=== PATIENT | female | born 1965 | race Caucasian/White ===

== ENCOUNTER 2016-10-25 10:09 | Emergency (ER) | payer OTHER ==
[2016-10-25 10:14] VITALS: BP 91/57; PULSE 73; TEMP 98; BMI 23.4
--- NOTE | 2016-10-25 11:03 | PDOC ---
[id number] 4d RED RT EYE, POSSIBLE INFECTION Time Seen by Provider: 10/25/16 10:39 History Source: Patient Exam Limitations: No Limitations - History of Present Illness Initial Comments: 10/25/16 11:03 Chief complaint: rightness of rt eye History of present illness: Patient is a 51-year-old female with no significant medical history who presents with redness of the sclera of right eye that patient noted had worsened today. Patient reports that she accidentally sprayed herself in the right eye with a cleaning product yesterday at [facility]. She irrigated it with warm water yesterday for about 10 minutes. She did not report this yesterday. Her rt. eye had a stinging sensation in it, unsure if she rubbed her eye. Pt. is unsure or which one out of four products she sprayed herself with. I spoke with her boss who reports that it could have been Good Sense, Alpha HP, Virex 256 or Glance all by [employer]. Poison control [facility] called he recommended testing PH now it should be 7-8 do PH , rinse with water if not between 7-8. No tearing or change in photophobia or visual changes. Pt. wears glasses for distance. SNellen OS 20/100, OD 20/50 and OU 20/50 without glasses for distance does not have them here. 10/25/16 11:31 10/25/16 13:12 10/25/16 13:14 Occurred: reports: yesterday Severity: reports: mild Pain Location: reports: none Method of Injury: Yes: other ( sprayed in rt. eye by laboratory equipment cleaner at work yesterday ) Modifying Factors: improves with: None Loss of Consciousness: no loss of consciousness Associated Symptoms (Fall): other (rt. eye subconjunctiva hemorrhage ) Past History - Past Medical History Allergies/Adverse Reactions: Allergies Allergy/AdvReac Type Severity Reaction Status Date / Time No Known Allergies Allergy Verified 10/25/16 10:10 Home Medications: Ambulatory Orders Peg 400/Hypromellose/Glycerin [Artificial Tears Drops] 2 drop OD Q8H #1 drops - Psycho/Social/Smoking Cessation Hx Suicidal Ideation: No Smoking History: Never smoked Have you smoked in the past 12 months: No Information on smoking cessation initiated: No Hx Alcohol Use: No Drug/Substance Use Hx: No Review of Systems - Review of Systems Able to Perform ROS?: Yes Constitutional: No: Symptoms Reported HEENTM: Yes: Other (subconjunctiva hemorrhage rt. eye noted today, sprayed in rt. eye yesterday at work with one of 4 operations accountant unsure of which one). No: Eye Pain, Blurred Vision, Tearing Respiratory: No: Symptoms reported Cardiac (ROS): No: Symptoms Reported ABD/GI: No: Symptoms Reported : No: Symptoms Reported Musculoskeletal: No: Symptoms Reported Integumentary: No: Symptoms Reported Neurological: No: Symptoms reported *Physical Exam - Vital Signs Last Vital Signs Temp Pulse Resp BP Pulse Ox 98.0 F 73 19 91/57 100 10/25/16 10:11 10/25/16 10:11 10/25/16 10:11 10/25/16 10:11 10/25/16 10:11 - Physical Exam General Appearance: Yes: Appropriately Dressed HEENT: positive: EOMI, SMILEY, Other (subconjunctiva hemorrhage noted rt. eye from 2o'clock to 8 o'clock, snellen OD 20/100, OS 20/50 and OU 20/50 without glasses, does not have glasses for distance with her). negative: Photophobia, Orbits Neck: negative: Lymphadenopathy (R), Lymphadenopathy (L) Respiratory/Chest: positive: Lungs Clear, Normal Breath Sounds. negative: Chest Tender, Respiratory Distress Cardiovascular: positive: Regular Rhythm, Regular Rate, S1, S2 Integumentary: positive: Normal Color Neurologic: positive: Alert, Normal Response, Responsive Medical Decision Making - Medical Decision Making 10/25/16 11:38 Patient is a 51-year-old female with no significant medical history who presents with redness of the sclera of right eye that patient noted had worsened today. Patient reports that she accidentally sprayed herself in the right eye with a cleaning product yesterday at [facility]. She irrigated it with warm water yesterday for about 10 minutes. She did not report this yesterday. Her rt. eye had a stinging sensation in it, unsure if she rubbed her eye. Pt. is unsure or which one out of four products she sprayed herself with. I spoke with her boss who reports that it could have been Good Sense, Alpha HP, Virex 256 or Glance all by [employer]. Poison control [facility] called he recommended testing PH now it should be 7-8 do PH , rinse with water if not between 7-8. No tearing or change in photophobia. 10/25/16 11:31 chemical exposure rt. eye subconjunctiva hemorrrhage rt. eye PLAN Poison control called recommended PH testing if not between 7-8 rinse eye with water, PH is between 7-8 do not use aspirin Artifical tears 2 drops rt. eye every 8 hrs for 5 days follow up with opthomology on 10/28/[address] called to [address] Olivo explained what had happened snellen test, & PH he recommended artifical tears 2 drops rt. eye every 8 hrs 5 days 10/25/16 13:15 10/25/16 13:16 *DC/Admit/Observation/Transfer Diagnosis at time of Disposition: Subconjunctival hemorrhage of right eye, Chemical exposure of eye - Discharge Dispostion Disposition: HOME Condition at time of disposition: Stable - Prescriptions Prescriptions: Peg 400/Hypromellose/Glycerin [Artificial Tears Drops] 2 drop OD Q8H #1 drops - Referrals Referrals: Edmond Olivo [Staff Physician] - - Patient Instructions Additional Instructions: Follow up with opthomologist on 10/28/16 Return to Emergency room if any visual changes, pain in right eye DO NOT TAKE ASPIRIN OR ANY PRODUCTS CONTAINING ASPIRIN DO NOT RUB RIGHT EYE PATIENT VOICED UNDERSTANDING OF DISCHARGE INSTRUCTIONS AND ALL QUESTIONS WERE ANSWERED
== END 2016-10-25 11:52 | disposition home or self-care (01) ==
LOC: JERFT 10:09
PROC: 4A07X0Z Measurement of Visual Acuity, External Approach (ICD-10-PCS; principal; 2016-10-25)
DX: Z77.098 Contact with and (suspected) exposure to other hazardous, chiefly nonmedicinal, chemicals (principal); T65.91XA Toxic effect of unspecified substance, accidental (unintentional), initial encounter; H11.31 Conjunctival hemorrhage, right eye; Y92.238 Other place in hospital as the place of occurrence of the external cause
CPT/HCPCS: 99281-25